=== PATIENT | male | born 1955 | race African-American/Black ===

== ENCOUNTER 2017-10-02 10:45 | Outpatient (CLI) | payer BC ==
--- NOTE | 2017-10-02 11:50 | RAD ---
LEFT KNEE FOUR VIEWS: HISTORY: Pain in the anterior knee since 1991. COMPARISON: None. FINDINGS: Four views of the left knee show moderate tricompartment joint space narrowing and osteophyte formati on, consistent with osteoarthritis. There is no evidence of acute fracture or dislocation. No knee effusion is seen. IMPRESSION: Moderate left knee osteoarthritis. POS: [facility]
== END 2017-10-02 10:46 | disposition home or self-care (01) ==
LOC: NAV RAD 10:45
PROVIDERS: ATTEND Internal Medicine
DX: M25.562 Pain in left knee (principal); M17.12 Unilateral primary osteoarthritis, left knee